=== PATIENT | female | born 1955 | race Caucasian/White ===

== ENCOUNTER 2020-01-29 17:12 | Emergency (ER) | payer OTHER ==
[~2020-01-29] VITALS: Ht 165.1 cm; Wt 77.1 kg
--- NOTE | 2020-01-29 17:12 | NUR ---
Patient BIBA BLS, transferred to bed 9. RN evaluating patient at bedside.
[2020-01-29 17:14] VITALS: BP 140/94
--- NOTE | 2020-01-29 17:18 | NUR ---
DR KIM AT BEDSIDE EXAMINING PT
--- NOTE | 2020-01-29 17:19 | NUR ---
64 Y/O FEMALE BIBA BLS C/O LT PINKY PAIN AND LT EYEBROW LACERATION S/P FALL TODAY. BLEEDING TO LAC CONTROLLED AT THIS TIME. NOTICABLE DEFORMITY TO LT PINKY WITH SWELLING. NO BRUISING NOTED. SKIN INTACT. DENIES LOC. PT STATES SHE FELL DUE TO TREMORS CAUSED BY HER MEDICATION. HOB ELEVATED, X 1 SIDE RAIL RAISED, VSS. MEDHX: DEPRESSION ALLERGIES: STATINS, IBUPROFEN
--- NOTE | 2020-01-29 17:35 | NUR ---
RADIOLOGY AT BEDSIDE
[2020-01-29] MEDS ORDERED: BACITRACIN OINT 500 UNITS/GM PKT TP ONE (17:45)
[2020-01-29] MEDS ORDERED: LIDOCAINE MPF 1% 10 MG/ML VIAL INJ ONE (17:45)
--- NOTE | 2020-01-29 17:45 | NUR ---
LIDOCAINE PLACED AT BEDSIDE FOR USE BY DR KIM
--- NOTE | 2020-01-29 18:05 | NUR ---
DR KIM AT BEDSIDE PERFORMING SUTURES TO LT EYEBROW
--- NOTE | 2020-01-29 18:30 | NUR ---
Patient discharged with v/s stable. Written and verbal after care instructions given and explained. Patient alert, oriented and verbalized understanding of instructions. Wheel Chair Assisted with by caregiver. All questions addressed prior to discharge. ID band removed. Patient advised to follow up with PMD. Rx of NORCO given. Patient educated on indication of medication including possible reaction and side effects. Opportunity to ask questions provided and answered.
[2020-01-29 18:31] VITALS: BP 133/78
== END 2020-01-29 18:30 | disposition home or self-care (01) ==
LOC: MED 17:12
DX: S63.257A Unspecified dislocation of left little finger, initial encounter (principal); S01.81XA Laceration without foreign body of other part of head, initial encounter; F32.9 Major depressive disorder, single episode, unspecified; Z90.49 Acquired absence of other specified parts of digestive tract; Z88.8 Allergy status to other drugs, medicaments and biological substances; W19.XXXA Unspecified fall, initial encounter; Y93.89 Activity, other specified; Y92.89 Other specified places as the place of occurrence of the external cause; Y99.8 Other external cause status
CPT/HCPCS: 12011; 26770; 73140; 99284; J2001; Q0092